=== PATIENT | male | born 1990 | race Caucasian/White ===

== ENCOUNTER 2019-10-24 09:34 | Emergency (ER) | payer OTHER, MEDICAID ==
[~2019-10-24] VITALS: Ht 172.7 cm; Wt 65.0 kg
[2019-10-24 09:35] VITALS: BP 129/89
[2019-10-24] MEDS ORDERED: ERGO2000 PO (09:41)
[2019-10-24] MEDS ORDERED: ARIP2TAB3 PO (09:41)
[2019-10-24] MEDS ORDERED: PROP20TA7 MT (09:41)
== END 2019-10-24 18:31 | disposition left against medical advice (07) ==
LOC: ER 09:50
DX: Z53.21 Procedure and treatment not carried out due to patient leaving prior to being seen by health care provider (principal)
CPT/HCPCS: 93005